=== PATIENT | female | born 1980 | race Caucasian/White ===

== ENCOUNTER 2017-01-08 12:26 | Emergency (ER) | payer OTHER ==
[~2017-01-08] VITALS: Ht 167.6 cm; Wt 52.2 kg
[~2017-01-08 12:26] MED LIST: PRE NATAL VITAMINS
[2017-01-08 13:00] VITALS: BP 118/86
[2017-01-08] MEDS ORDERED: CYCL-331 PO (13:00)
[2017-01-08] MEDS ORDERED: NAPR500T PO (13:00)
--- NOTE | 2017-01-08 13:00 | PHYS DOC ---
Past History Past Medical History: No Pertinent History, Other Past Surgical History: No Surgical History, Other Smoking: Cigarettes Alcohol Use: None Drug Use: None Adult General Chief Complaint Chief Complaint: BACK PAIN - NO INJURY HPI HPI Patient is a 36 year old female who presents with complaint of left-sided low back pain. Patient states that she has been having pain over the past few days. Patient states that the pain is in her lower back on the left side and radiates towards her left outer thigh. Patient states that the pain worsens with movement. Patient has had similar symptoms in the past associated with . The patient states that her symptoms are higher in the intensity than they were in the past. Patient rates pain currently as 8 out of 10. Patient denies any radiation of pain into her left foot. Patient denies loss of bowel or bladder control, saddle anesthesia, or foot drop. Patient has not taken any medications to help with symptoms. Describes pain as sharp and tight. Denies any fall or trauma. Review of Systems Review of Systems Constitutional: Denies fever or chills [] Eyes: Denies change in visual acuity, redness, or eye pain [] HENT: Denies nasal congestion or sore throat [] Respiratory: Denies cough or shortness of breath [] Cardiovascular: Denies chest pain or edema [] GI: Denies abdominal pain, nausea, vomiting, bloody stools or diarrhea [] : Denies dysuria or hematuria [] Musculoskeletal: Low back pain [] Integument: Denies rash or skin lesions [] Neurologic: Denies headache, focal weakness or sensory changes [] Allergies Allergies Allergies Coded Allergies Type Severity Reaction Last Updated Verified sulfamethoxazole Allergy Unknown 10/09/15 Yes trimethoprim Allergy Unknown 10/09/15 Yes Physical Exam Physical Exam Constitutional: Well developed, well nourished, appears in mild discomfort, non- toxic appearance. [] HENT: Normocephalic, atraumatic, bilateral external ears normal, oropharynx moist, no oral exudates, nose normal. [] Eyes: PERRLA, EOMI, conjunctiva normal, no discharge. [] Neck: Normal range of motion, no tenderness, supple, no stridor. [] Cardiovascular:Heart rate regular rhythm, no murmur [] Lungs & Thorax: Bilateral breath sounds clear to auscultation [] Abdomen: Bowel sounds normal, soft, no tenderness, no masses, no pulsatile masses. [] Skin: Warm, dry, no erythema, no rash. [] Back: Left lower lumbar paraspinous muscle tenderness to palpation, no tenderness to palpation over the distribution of sciatic nerve, tenderness with flexion at left hip, neurovascularly intact distal to site of pain. [] Extremities: No tenderness, no cyanosis, no clubbing, ROM intact, no edema. [] Neurologic: Alert and oriented X 3, normal motor function, normal sensory function, no focal deficits noted. [] Current Patient Data Vital Signs Vital Signs Date Time Temp Pulse Resp B/P (MAP) Pulse Ox O2 Delivery O2 Flow Rate FiO2 01/08/17 13:00 51 20 118/86 (97) 100 Room Air 01/08/17 12:26 98.4 Lab Results Not performed EKG EKG Not performed Radiology/Procedures Radiology/Procedures Not performed [] Course & Med Decision Making Course & Med Decision Making Pertinent Labs and Imaging studies reviewed. (See chart for details) Patient given Naprosyn in the emergency department. Patient's symptoms appear consistent with acute low back strain. Patient will continue on Flexeril and Naprosyn as outpatient treatment. Advised follow-up with primary care in one week for reevaluation. Advised return emergency department for any worsening symptoms. Patient voiced understanding and in agreement with treatment plan. Dragon Disclaimer Dragon Disclaimer This chart was dictated in whole or in part using Voice Recognition software in a busy, high-work load, and often noisy Emergency Department environment. It may contain unintended and wholly unrecognized errors or omissions. Departure Departure: Impression: Primary Impression: Low back strain Disposition: 01 HOME, SELF-CARE Condition: IMPROVED Referrals: MORGAN BAKNS MD (PCP) Patient Instructions: Back Pain, Adult Additional Instructions: Follow-up with your primary doctor in 1 week for reevaluation. Return to emergency department for any worsening symptoms. Scripts Naproxen (NAPROSYN) 500 Mg Tablet 1 TAB PO BID, #20 TAB 0 Refills Prov: SOSA VALLEJO MD 01/08/17 Cyclobenzaprine Hcl (CYCLOBENZAPRINE HCL) 10 Mg Tablet 1 TAB PO TID Y for MUSCLE PAIN, #30 TAB Prov: SOSA VALLEJO MD 01/08/17 Problem Qualifiers Primary Impression: Low back strain Encounter type: initial encounter Qualified Codes: S39.012A - Strain of muscle, fascia and tendon of lower back, initial encounter SOSA VALLEJO MD Jan 08, 2017 13:00
[2017-01-08] MEDS ORDERED: NAPROXEN 500 MG TABLET PO ONE (13:10)
== END 2017-01-08 13:10 | disposition home or self-care (01) ==
LOC: ER 12:26
DX: S39.012A Strain of muscle, fascia and tendon of lower back, initial encounter (principal); F17.210 Nicotine dependence, cigarettes, uncomplicated; Z88.1 Allergy status to other antibiotic agents; X58.XXXA Exposure to other specified factors, initial encounter; Y93.89 Activity, other specified; Y92.89 Other specified places as the place of occurrence of the external cause; Y99.8 Other external cause status
CPT/HCPCS: 99283

== ENCOUNTER 2017-10-05 13:09 | Emergency (ER) | payer OTHER ==
[~2017-10-05] VITALS: Ht 167.6 cm; Wt 54.4 kg
[~2017-10-05 13:09] MED LIST changes: +CYCL-331 PO; +NAPR-683 PO
--- NOTE | 2017-10-05 14:07 | PHYS DOC ---
Past History Past Medical History: No Pertinent History, Other Past Surgical History: Cholecystectomy, Other Smoking: Cigarettes Alcohol Use: None Drug Use: None Adult General Chief Complaint Chief Complaint: EARACHE/EAR PAIN HPI HPI Patient is a pleasant 37-year-old female with a history of smoking who presents with a 2 day history of ear pain that began spontaneously that come down to the upper portion of the jaw. Patient was she's had a URI last week abduction: Sick to work. She's had a nonproductive cough congestion runny nose and actually resolved. She woke up yesterday with facial discomfort on the left side of her face with radiation to the tragus of the ear without ear drainage hearing loss tinnitus or other symptoms. She denies any fevers, chills, trauma to the face, palms and chewing but she is having some increased pain with hot and cold foods. She has a known history of dental caries and dental problems for which she now has a insurance policy and will see the dentist pain is a 6 of 10 Review of Systems Review of Systems Constitutional: Denies fever or chills [] Eyes: Denies change in visual acuity, redness, or eye pain [] HENT: Positive for nasal congestion without sore throat positive for dental pain Respiratory: Positive for nonproductive cough negative for shortness of breath Cardiovascular: No additional information not addressed in HPI [] GI: Denies abdominal pain, nausea, vomiting, bloody stools or diarrhea [] : Denies dysuria or hematuria [] Musculoskeletal: Denies back pain or joint pain [] Integument: Denies rash or skin lesions [] Neurologic: Positive for facial pain without focal weakness sensory changes or change in vision Endocrine: Denies polyuria or polydipsia [] All other systems were reviewed and found to be within normal limits, except as documented in this note. Allergies Allergies Allergies Coded Allergies Type Severity Reaction Last Updated Verified sulfamethoxazole Allergy Unknown 10/09/15 Yes trimethoprim Allergy Unknown 10/09/15 Yes Physical Exam Physical Exam Of the vital signs on the chart within normal limits Constitutional: Well developed, well nourished, no acute distress, non-toxic appearance. [] HENT: Normocephalic, atraumatic, bilateral external ears normal, oropharynx moist, no oral exudates, nose normal TMs are clear bilaterally there is no tender is over the tragus is reproducible on physical exam there is no evidence of otitis externa very poor dentition significant erosions. Enamel to the dentin specifically along tooth 15 with some mild gingival inflammation and redness without soft tissue abscess noted no buccal mucosa induration. [] Eyes: PERRLA, EOMI, conjunctiva normal, no discharge. [] Neck: Normal range of motion, no tenderness, supple, no stridor. No anterior lymphadenopathy [] Cardiovascular:Heart rate regular rhythm, no murmur [] Lungs & Thorax: Bilateral breath sounds clear to auscultation [] Skin: Warm, dry, no erythema, no rash. On the face no vesicles noted [] Neurologic: Alert and oriented X 3, normal motor function, normal sensory function, no focal deficits noted. Speech is normal [] Psychologic: Affect normal, judgement normal, mood normal. [] EKG EKG [] Radiology/Procedures Radiology/Procedures [] Course & Med Decision Making Course & Med Decision Making Pertinent Labs and Imaging studies reviewed. (See chart for details) []She presents with unilateral left ear pain with significant dental caries and dental erosions to the enamel patient no she has chronic dental issues and likely has dental caries require root canals and treatment. I will place her on antibiotics and pain medications and close follow-up with her PCP for referral to dentist for an oral surgeon evaluation. Patient I discussed long-term treatment this is not here in the emergency department but with a dentist or oral surgeon. Impression: Dental caries, gingivitis, Disposition: discharge: I've spoken with the patient and/or caregivers. I've explained the patient's condition, diagnosis and treatment plan based on information available to me at this time. I've answered the patient's and/or caregivers questions and addressed any concerns. The patient and/or caregivers have a good understanding the patient's diagnosis, condition and treatment plan as can be expected at this point. Vital signs have been stabilized. The patient's condition is stable for discharge from the emergency department. The patient will pursue further outpatient evaluation with her primary care provider or other designated consulting physician as outlined in the discharge instructions. Patient and/or caregivers are agreeable to this plan of care and follow-up instructions have been explained in detail. The patient and/or caregivers have received these instructions in written format and expressed understanding of these discharge instructions. The patient and her caregivers are aware that if any significant change in condition or worsening of symptoms should prompt him to immediately return to this of the closest emergency department. If an emergent department is not readily available I would encourage him to call 911. Harsh Disclaimer Harsh Disclaimer This electronic medical record was generated, in whole or in part, using a voice recognition dictation system. Departure Departure: Impression: Primary Impression: Dental caries Additional Impression: Gingivitis Disposition: 01 HOME, SELF-CARE Condition: STABLE Referrals: MORGAN BANKS MD (PCP) Patient Instructions: Dental Caries, Gingivitis Additional Instructions: discharge: I've spoken with the patient and/or caregivers. I've explained the patient's condition, diagnosis and treatment plan based on information available to me at this time. I've answered the patient's and/or caregivers questions and addressed any concerns. The patient and/or caregivers have a good understanding the patient's diagnosis, condition and treatment plan as can be expected at this point. Vital signs have been stabilized. The patient's condition is stable for discharge from the emergency department. The patient will pursue further outpatient evaluation with her primary care provider or other designated consulting physician as outlined in the discharge instructions. Patient and/or caregivers are agreeable to this plan of care and follow-up instructions have been explained in detail. The patient and/or caregivers have received these instructions in written format and expressed understanding of these discharge instructions. The patient and her caregivers are aware that if any significant change in condition or worsening of symptoms should prompt him to immediately return to this of the closest emergency department. If an emergent department is not readily available I would encourage him to call 911. Scripts Naproxen Sodium (NAPROXEN SODIUM) 275 Mg Tablet 275 MG PO BID for 7 Days, #14 TAB Prov: RAISSA SCHERER MD 10/05/17 Hydrocodone Bit/Acetaminophen (HYDROCODONE-APAP 5-325 ) 1 Each Tablet 1 TAB PO PRN Q6HRS Y for PAIN for 3 Days, #10 TAB 0 Refills Prov: RAISSA SCHERER MD 10/05/17 Amoxicillin/Potassium Clav (AMOX TR-K CLV 875-125 MG TAB) 1 Each Tablet 1 TAB PO BID, #20 TAB Prov: RAISSA SCHERER MD 10/05/17 Problem Qualifiers RAISSA SCHERER MD Oct 05, 2017 14:07
[2017-10-05] MEDS ORDERED: NAPR275T59 PO (14:15)
[2017-10-05] MEDS ORDERED: HYDR-2758 PO (14:15)
[2017-10-05] MEDS ORDERED: AMOX1TAB11 PO (14:15)
[2017-10-05 14:50] VITALS: BP 132/92
== END 2017-10-05 14:50 | disposition home or self-care (01) ==
LOC: ER 13:09 → ICU 15:55 → UNDOADMIN 15:55
DX: K02.9 Dental caries, unspecified (principal); K05.10 Chronic gingivitis, plaque induced; R09.81 Nasal congestion; F17.210 Nicotine dependence, cigarettes, uncomplicated; Z88.1 Allergy status to other antibiotic agents; Z88.2 Allergy status to sulfonamides
CPT/HCPCS: 99283

== ENCOUNTER 2018-01-03 19:12 | Emergency (ER) | payer OTHER ==
[~2018-01-03] VITALS: Ht 167.6 cm; Wt 53.6 kg
[~2018-01-03 19:12] MED LIST changes: +AMOX1TAB11 PO; +HYDR-2758 PO; +NAPR275T59 PO
--- NOTE | 2018-01-03 19:21 | ED.ADGEN ---
Past History Past Medical History: No Pertinent History Past Surgical History: Cholecystectomy, Other Smoking: Cigarettes Alcohol Use: Sober Drug Use: Marijuana Adult General Chief Complaint Chief Complaint " It feels like I have sciatica again.. but this time on the right.. " HPI HPI Patient is a 37 year old female who presents with above hx and complaints of Rt. sciatica type complaints. No specific history of injury. Patient rates the pain proceeds down her back in to her right gluteal area and around her thigh. History of fever. No history immunosuppression. No history of cancer. Pain appears to track along the sciatic nerve on the right. DTRs +2 at patella. Patient does walk with a limp. Review of Systems Review of Systems Constitutional: Denies fever or chills [] Eyes: Denies change in visual acuity, redness, or eye pain [] HENT: Denies nasal congestion or sore throat [] Respiratory: Denies cough or shortness of breath [] Cardiovascular: No additional information not addressed in HPI [] GI: Denies abdominal pain, nausea, vomiting, bloody stools or diarrhea [] : Denies dysuria or hematuria [] Musculoskeletal: Complaints of right sciatic pain Integument: Denies rash or skin lesions [] Neurologic: Denies headache, focal weakness or sensory changes [] Endocrine: Denies polyuria or polydipsia [] All other systems were reviewed and found to be within normal limits, except as documented in this note. Family History Family History Noncontributory Current Medications Current Medications Current Medications Medications (Trade) Dose Ordered Sig/[facility] Start Time Stop Time Status Last Admin Dose Admin Ketorolac Tromethamine (Toradol) 60 mg 1X ONCE 01/03/18 19:45 01/03/18 19:46 DC 01/03/18 19:51 60 MG Orphenadrine Citrate (Norflex) 60 mg 1X ONCE 01/03/18 19:45 01/03/18 19:46 DC 01/03/18 19:51 60 MG Allergies Allergies Allergies Coded Allergies Type Severity Reaction Last Updated Verified sulfamethoxazole Allergy Unknown 10/09/15 Yes trimethoprim Allergy Unknown 10/09/15 Yes Physical Exam Physical Exam Constitutional: in acute distress, non-toxic appearance. [] HENT: Normocephalic, atraumatic, bilateral external ears normal, oropharynx moist, no oral exudates, nose normal. [] Eyes: PERRLA, EOMI, conjunctiva normal, no discharge. [] Neck: Normal range of motion, no tenderness, supple, no stridor. [] Cardiovascular:Heart rate regular rhythm, no murmur [] Lungs & Thorax: Bilateral breath sounds clear to auscultation [] Abdomen: Bowel sounds normal, soft, no tenderness, no masses, no pulsatile masses. [] Old surgery scar Skin: Warm, dry, no erythema, no rash. [] Back: Right sciatic nerve tenderness, no CVA tenderness. [] Extremities: No tenderness, no cyanosis, no clubbing, ROM intact, no edema. [] Except findings in right hip and leg. She does have a positive straight leg with pain on right. She denies any saddle loss. . Neurologic: Alert and oriented X 3, normal motor function, normal sensory function, no focal deficits noted. [] Psychologic: Affect normal, judgement normal, mood normal. [] Current Patient Data Vital Signs Vital Signs Date Time Temp Pulse Resp B/P (MAP) Pulse Ox O2 Delivery O2 Flow Rate FiO2 01/03/18 19:27 98.4 95 16 100 Room Air Lab Results Laboratory Tests Test 01/03/18 18:50 01/03/18 19:35 POC Urine HCG, Qualitative hcg negative (Negative) Urine Collection Type Unknown Urine Color Yellow Urine Clarity Clear Urine pH 8.0 Urine Specific [place] 1.015 Urine Protein Neg (NEG-TRACE) Urine Glucose (UA) Neg mg/dL (NEG) Urine Ketones (Stick) Neg mg/dL (NEG) Urine Blood Neg (NEG) Urine Nitrite Neg (NEG) Urine Bilirubin Neg (NEG) Urine Urobilinogen Dipstick 0.2 mg/dL (0.2 mg/dL) Urine Leukocyte Esterase Neg (NEG) Urine RBC 0 /HPF (0-2) Urine WBC Occ /HPF (0-4) Urine Squamous Epithelial Cells Mod /LPF Urine Transitional Epithelial Cells Few /LPF Urine Bacteria 0 /HPF (0-FEW) Urine Opiates Screen Neg (NEG) Urine Methadone Screen Neg (NEG) Urine Barbiturates Neg (NEG) Urine Phencyclidine Screen Neg (NEG) Urine Amphetamine/Methamphetamine Neg (NEG) Urine Benzodiazepines Screen Neg (NEG) Urine Cocaine Screen Neg (NEG) Urine Cannabinoids Screen Pos (NEG) Urine Ethyl Alcohol Neg (NEG) EKG EKG [] Radiology/Procedures Radiology/Procedures I interpretation x-ray showed degenerative joint changes but no obvious fracture dislocation[]. CT shows some some degenerative joint changes L4, L5 and S1. Course & Med Decision Making Course & Med Decision Making Pertinent Labs and Imaging studies reviewed. (See chart for details) Patient use ice packs as needed for the next 2 or 3 days. Moist heat may start after day 3. Take Tylenol and ibuprofen for pain. Patient follow-up primary care. Patient to return if any concerns. [] Final Impression Final Impression 1. Sciatica-right[] Dragon Disclaimer Dragon Disclaimer This electronic medical record was generated, in whole or in part, using a voice recognition dictation system. MATTY AUGUST MD Jan 03, 2018 19:21
[2018-01-03] MEDS ORDERED: ORPHENADRINE CITRATE 60 MG/2 ML VIAL. IM ONE (19:45)
[2018-01-03] MEDS ORDERED: KETOROLAC 60 MG/2 ML VIAL. IM ONE (19:45)
[2018-01-03 20:06] LABS: BARBITURATES NEG (NEG); BENZODIAZEPINES NEG (NEG); BILIRUBIN,URINE NEG (NEG); CANNABINOIDS POS (NEG); CLARITY,URINE CLEAR; COCAINE NEG (NEG); COLOR,URINE YELLOW; GLUCOSE,URINE NEG (NEG); METHADONE NEG (NEG); OPIATES NEG (NEG); PHENCYCLIDINE NEG (NEG)
[2018-01-03 20:07] LABS: AMPHETAMINE/METHAMPHETAMINE NEG (NEG); NITRITE,URINE NEG (NEG); UROBILINOGEN,URINE 0.2 mg/dL (0.2 mg/dL)
[2018-01-03 20:08] LABS: BACTERIA,URINE 0 /HPF (0-FEW); RBC,URINE 0 /HPF (0-2); SQUAMOUS EPITHELIAL CELL,UR MOD /LPF; WBC,URINE OCC /HPF (0-4)
[2018-01-03] MEDS ORDERED: CYCL-331 PO (21:06)
[2018-01-03] MEDS ORDERED: HYDR-79 PO (21:06)
--- NOTE | 2018-01-04 05:10 | RAD ---
AP pelvis x-ray HISTORY: Low back pain and right hip and leg pain. FINDINGS: No fracture, dislocation or arthritic change. Soft tissues are unremarkable. IMPRESSION: No acute osseous injury of the pelvis. Lumbar spine AP lateral x-rays 3 views. HISTORY: Low back pain radiating down the right hip and leg. FINDINGS: Mild levoconvex lumbar scoliosis. Lumbar vertebral body height and alignment intact. No fracture of the lumbar spine evident. Posterior disc space narrowing at L4-L5 and L5-S1. IMPRESSION: No acute osseous injury. Posterior disc space narrowing indicative of disc pathology at L4-5 and L5-S1. Electronically signed by: Nithin Luu MD (01/04/2018 5:06 AM) [facility]
== END 2018-01-03 21:15 | disposition home or self-care (01) ==
LOC: ER 19:12
DX: M54.31 Sciatica, right side (principal); F17.210 Nicotine dependence, cigarettes, uncomplicated; Z88.1 Allergy status to other antibiotic agents
CPT/HCPCS: 36415; 72100; 72170; 80307; 81001; 81025; 96372; 99285; J1885; J2360; G0479

== ENCOUNTER 2018-01-21 19:11 | Emergency (ER) | payer OTHER ==
[~2018-01-21] VITALS: Ht 167.6 cm; Wt 53.6 kg
[~2018-01-21 19:11] MED LIST changes: +HYDR-79 PO
--- NOTE | 2018-01-21 19:29 | ED.ADGEN ---
Past History Past Medical History: Anemia, High Cholesterol, Sciatica Past Surgical History: Colectomy Smoking: Cigarettes Alcohol Use: None Drug Use: Marijuana Adult General Chief Complaint Chief Complaint ".. I got chronic back pain.. but the last week or so... it gotten worse. .. I normally see Joselyn.. they did a xray.. but did not see anything the last time I seen him... then I got put on Prednisone... Wed... but pain has increased.... " HPI HPI Patient is a 37 year old female who presents with above hx and complaints of exacerbation of chronic mid back pain. Pt. had back pain for 8 yrs. Recent increase of pain. Did see Dr. Francisco on Wed. The patient has had previous dx. sciatica. Patient denies any recent injury that cause exacerbation. Patient denies any history of cancer. Patient denies any history of IV drug use. Patient denies any immunosuppression. She denies any problems defecation or urination. The pain located to lower lumbar area and seemed to radiate along sciatic nerves. Review of Systems Review of Systems Constitutional: Denies fever or chills [] Eyes: Denies change in visual acuity, redness, or eye pain [] HENT: Denies nasal congestion or sore throat [] Respiratory: Denies cough or shortness of breath [] Cardiovascular: No additional information not addressed in HPI [] GI: Denies abdominal pain, nausea, vomiting, bloody stools or diarrhea [] : Denies dysuria or hematuria [] Musculoskeletal: Complaints of lower back pain Integument: Denies rash or skin lesions [] Neurologic: Denies headache, focal weakness or sensory changes [] Endocrine: Denies polyuria or polydipsia [] All other systems were reviewed and found to be within normal limits, except as documented in this note. Family History Family History Noncontributory Current Medications Current Medications Current Medications Medications (Trade) Dose Ordered Sig/[facility] Start Time Stop Time Status Last Admin Dose Admin Ketorolac Tromethamine (Toradol Im) 60 mg 1X ONCE 01/21/18 20:00 01/21/18 20:02 DC 01/21/18 20:42 60 MG Morphine Sulfate (Morphine 10mg Syringe) 10 mg 1X ONCE 01/21/18 20:00 01/21/18 20:02 DC 01/21/18 20:43 10 MG Orphenadrine Citrate (Norflex) 60 mg 1X ONCE 01/21/18 20:00 01/21/18 20:02 DC 01/21/18 20:42 60 MG Allergies Allergies Allergies Coded Allergies Type Severity Reaction Last Updated Verified sulfamethoxazole Allergy Unknown 10/09/15 Yes trimethoprim Allergy Unknown 10/09/15 Yes Physical Exam Physical Exam Constitutional: Well developed, well nourished, no acute distress, non-toxic appearance. [] HENT: Normocephalic, atraumatic, bilateral external ears normal, oropharynx moist, no oral exudates, nose normal. [] Eyes: PERRLA, EOMI, conjunctiva normal, no discharge. [] Neck: Normal range of motion, no tenderness, supple, no stridor. [] Cardiovascular:Heart rate regular rhythm, no murmur [] Lungs & Thorax: Bilateral breath sounds clear to auscultation [] Abdomen: Bowel sounds normal, soft, no tenderness, no masses, no pulsatile masses. [] Surgical scar. Skin: Warm, dry, no erythema, no rash. [] Back: Lumbar sacral muscle tenderness. , no CVA tenderness. [] Extremities: No tenderness, no cyanosis, no clubbing, ROM intact, no edema. [] Neurologic: Alert and oriented X 3, normal motor function, normal sensory function, no focal deficits noted. []DTR +2 patella. Psychologic: Affect normal, judgement normal, mood normal. [] Current Patient Data Vital Signs Vital Signs Date Time Temp Pulse Resp B/P (MAP) Pulse Ox O2 Delivery O2 Flow Rate FiO2 01/21/18 21:18 98.2 96 20 132/72 (92) 99 Room Air EKG EKG [] Radiology/Procedures Radiology/Procedures CT of C-spine shows no acute processes. Does have DJD changes. See formal report Course & Med Decision Making Course & Med Decision Making Pertinent Labs and Imaging studies reviewed. (See chart for details). Patient take Tylenol or ibuprofen as needed for pain. Patient take Flexeril for muscle spasms. Patient to take Vicoprofen for marked discomfort. Patient must follow-up primary care and review x-rays and labs [] Final Impression Final Impression 1. Back Pain[]- Hx Chronic Sciatica x 8 yrs 2. Exacerbation of Chronic Back pain- 3. DJD Dragon Disclaimer Dragon Disclaimer This electronic medical record was generated, in whole or in part, using a voice recognition dictation system. MATTY AUGUST MD Jan 21, 2018 19:29
[2018-01-21] MEDS ORDERED: ORPHENADRINE CITRATE 60 MG/2 ML VIAL. IM ONE (20:00)
[2018-01-21] MEDS ORDERED: MORPHINE SULFATE 10 MG/ML SYRINGE. SQ ONE (20:00)
[2018-01-21] MEDS ORDERED: KETOROLAC 60 MG/2 ML VIAL. IM ONE (20:00)
--- NOTE | 2018-01-21 20:51 | RAD ---
CT lumbar spine without intravenous contrast History: Chronic pain. Worsening. Technique: Noncontrast CT of the lumbar spine was performed. Axial, sagittal, and coronal reconstructions were obtained. Exposure: One or more of the following individualized dose reduction techniques were utilized for this examination: 1. Automated exposure control 2. Adjustment of the mA and/or kV according to patient size 3. Use of iterative reconstruction technique Findings: Evaluation of spinal contents is limited by lack of intrathecal contrast. 5 lumbar type vertebral bodies are present. There is no evidence of acute fracture or acute malalignment. No paravertebral soft tissue swelling is identified. No spinal canal stenosis or significant neural foraminal narrowing is appreciated. There may be mild disc bulge L5-S1. Mild bilateral facet hypertrophy is seen at L5-S1. Calcified aortic atherosclerosis is seen. Impression: 1. No evidence of acute traumatic injury to the lumbar spine. 2. Mild degeneration at L5-S1. Electronically signed by: Dalton Serna MD (01/21/2018 8:48 PM) [facility]
[2018-01-21] MEDS ORDERED: CYCL-331 PO (21:00)
[2018-01-21] MEDS ORDERED: HYDR-79 PO (21:00)
[2018-01-21 21:18] VITALS: BP 132/72
== END 2018-01-21 21:19 | disposition home or self-care (01) ==
LOC: ER 19:11
DX: G89.29 Other chronic pain (principal); M47.896 Other spondylosis, lumbar region; E78.00 Pure hypercholesterolemia, unspecified; F17.210 Nicotine dependence, cigarettes, uncomplicated; Z88.1 Allergy status to other antibiotic agents; Z88.2 Allergy status to sulfonamides
CPT/HCPCS: 72131; 96372; 99284; J1885; J2270; J2360

== ENCOUNTER 2018-02-17 18:16 | Emergency (ER) | payer OTHER ==
[~2018-02-17] VITALS: Ht 170.2 cm; Wt 53.5 kg
[2018-02-17] MEDS ORDERED: MORPHINE SULFATE 10 MG/ML SYRINGE. IM ONE (19:45)
[2018-02-17] MEDS ORDERED: KETOROLAC 60 MG/2 ML VIAL. IM ONE (19:45)
[2018-02-17] MEDS ORDERED: ORPHENADRINE CITRATE 60 MG/2 ML VIAL. IM ONE (19:45)
--- NOTE | 2018-02-17 20:00 | PHYS DOC ---
Past History Past Medical History: Other Past Surgical History: Colectomy Smoking: Cigarettes Additional Smoking Information: PPD smoker Alcohol Use: None Drug Use: Marijuana Social History Narrative: Daily marijuana use Adult General Chief Complaint Chief Complaint: Neck Pain HPI HPI Patient is a 37 year old female who presents with complaint of neck and back pain. The patient has history of chronic lumbar radiculopathy. The patient states that she just started physical therapy yesterday. Patient states that she woke today with worsening pain along left side of her back and the left side of her neck. The patient denies any unusual symptoms including loss of bowel or bladder control, saddle anesthesia, or foot drop. The patient states she is having pain that radiates down her left leg which she has had in the past. The patient states currently she does not have any medications at home for pain. The patient states that she planned on going care doctor but was unable to get an appointment today so she came to the emergency department for assistance with pain control. Patient rates pain currently as 9 out of 10 on my evaluation. Review of Systems Review of Systems Constitutional: Denies fever or chills [] Eyes: Denies change in visual acuity, redness, or eye pain [] HENT: Denies nasal congestion or sore throat [] Respiratory: Denies cough or shortness of breath [] Cardiovascular: Denies chest pain or edema[] GI: Denies abdominal pain, nausea, vomiting, bloody stools or diarrhea [] : Denies dysuria or hematuria [] Musculoskeletal: Back pain, neck pain[] Integument: Denies rash or skin lesions [] Neurologic: Denies headache, focal weakness or sensory changes [] All other systems were reviewed and found to be within normal limits, except as documented in this note. Current Medications Current Medications Current Medications Medications (Trade) Dose Ordered Sig/Antonio Start Time Stop Time Status Last Admin Dose Admin Ketorolac Tromethamine (Toradol Im) 60 mg 1X ONCE 02/17/18 19:45 02/17/18 19:46 DC Morphine Sulfate (Morphine 10mg Syringe) 10 mg 1X ONCE 02/17/18 19:45 02/17/18 19:46 DC Orphenadrine Citrate (Norflex) 60 mg 1X ONCE 02/17/18 19:45 02/17/18 19:46 DC Allergies Allergies Allergies Coded Allergies Type Severity Reaction Last Updated Verified sulfamethoxazole Allergy Unknown 10/09/15 Yes trimethoprim Allergy Unknown 10/09/15 Yes Physical Exam Physical Exam Constitutional: Alert, afebrile, appears in mild discomfort. [] HENT: Normocephalic, atraumatic, bilateral external ears normal, oropharynx moist, no oral exudates, nose normal. [] Eyes: PERRLA, EOMI, conjunctiva normal, no discharge. [] Neck: Normal range of motion, left wrist last muscle tenderness to palpation, no midline tenderness, supple, no stridor. [] Cardiovascular:Heart rate regular rhythm, no murmur [] Lungs & Thorax: Bilateral breath sounds clear to auscultation [] Abdomen: Bowel sounds normal, soft, no tenderness, no masses, no pulsatile masses. [] Skin: Warm, dry, no erythema, no rash. [] Back: Left paraspinous muscle tenderness to palpation along lower lumbar and midthoracic spine, no midline tenderness, no CVA tenderness. [] Extremities: No tenderness, no cyanosis, no clubbing, ROM intact, no edema. [] Neurologic: Alert and oriented X 3, normal motor function, normal sensory function, no focal deficits noted. [] Current Patient Data Vital Signs Vital Signs Date Time Temp Pulse Resp B/P (MAP) Pulse Ox O2 Delivery O2 Flow Rate FiO2 02/17/18 18:27 97.9 118 16 98 Room Air Lab Results Not performed EKG EKG Not performed[] Radiology/Procedures Radiology/Procedures Not performed[] Course & Med Decision Making Course & Med Decision Making Pertinent Labs and Imaging studies reviewed. (See chart for details) The patient's symptoms appear to be an exacerbation of chronic underlying back pain. The patient is ambulatory at this time and displays no red flag symptoms for spinal cord compression. Patient was administered Toradol, Norflex, and morphine in the emergency department to assist with pain control. Due to chronic pain, I informed the patient she would need to have pain medication prescriptions written by her primary doctor for further care and recommended she follow up with her primary doctor in the next 1-2 days for reevaluation. Advised return to emergency department for any worsening symptoms. Patient was understanding and in agreement with treatment plan. Dragon Disclaimer Dragon Disclaimer This electronic medical record was generated, in whole or in part, using a voice recognition dictation system. Departure Departure: Impression: Primary Impression: Acute exacerbation of chronic low back pain Additional Impression: Neck pain Disposition: 01 HOME, SELF-CARE Condition: IMPROVED Referrals: HA QUINONEZ MD (PCP) Patient Instructions: Chronic Back Pain Additional Instructions: Follow-up the primary doctor in 1-2 days for reevaluation. Return to the emergency department for any worsening symptoms. Problem Qualifiers SOSA VALLEJO MD Feb 17, 2018 20:00
[2018-02-17 20:35] VITALS: BP 130/83
== END 2018-02-17 20:35 | disposition home or self-care (01) ==
LOC: ER 18:16
DX: G89.29 Other chronic pain (principal); M54.5 Low back pain; M54.2 Cervicalgia; F17.210 Nicotine dependence, cigarettes, uncomplicated; Z88.1 Allergy status to other antibiotic agents
CPT/HCPCS: 96372; 99284; J1885; J2270; J2360

== ENCOUNTER 2019-05-27 14:58 | Emergency (ER) | payer SELFPAY ==
[~2019-05-27] VITALS: Ht 170.2 cm; Wt 53.6 kg
[2019-05-27 14:58] VITALS: BP 141/87
[~2019-05-27 14:58] MED LIST changes: +HYDR-1179 PO; +HYDR-2155 PO; -HYDR-2758 PO; -HYDR-79 PO
--- NOTE | 2019-05-27 15:54 | PHYS DOC ---
Past History Past Medical History: Other Past Surgical History: Cholecystectomy, Colectomy Smoking: Cigarettes Alcohol Use: None Drug Use: Marijuana Adult General Chief Complaint Chief Complaint: MULTIPLE COMPLAINTS HPI HPI Patient is a 38-year-old female with 2 complaints. #1: Left middle toe pain. This started last night. She struck something while walking inside last night. No bleeding. Bruising is present. Increased pain with movement. Pain is mild to moderate in intensity. No radiation of the discomfort into the foot. #2: Left side facial pain. Patient has a history of poor dentition. She is hurting in her left upper teeth and into her face. No drainage. No fever. No difficulty breathing or swallowing. No nausea or vomiting. No relief with Aleve taken earlier today. Symptoms have been present since this morning. Getting worse over time. Pain is moderate to severe in intensity.[] Review of Systems Review of Systems Constitutional: Denies fever or chills [] Eyes: Denies change in visual acuity, redness, or eye pain [] HENT: Denies nasal congestion or sore throat, see history of present illness [] Respiratory: Denies cough or shortness of breath [] Cardiovascular: No chest pain or palpitations[] GI: Denies abdominal pain, nausea, vomiting, bloody stools or diarrhea [] : Denies dysuria or hematuria [] Musculoskeletal: Denies back pain, see history of present illness[] Integument: Denies rash or skin lesions [] Neurologic: Denies headache, focal weakness or sensory changes [] Endocrine: Denies polyuria or polydipsia [] All other systems were reviewed and found to be within normal limits, except as documented in this note. Current Medications Current Medications Current Medications Medications (Trade) Dose Ordered Sig/[facility] Start Time Stop Time Status Last Admin Dose Admin Amoxicillin (Amoxil) 500 mg 1X ONCE 05/27/19 16:00 05/27/19 16:01 UNV Allergies Allergies Allergies Coded Allergies Type Severity Reaction Last Updated Verified sulfamethoxazole Allergy Unknown 10/09/15 Yes trimethoprim Allergy Unknown 10/09/15 Yes Physical Exam Physical Exam Constitutional: Well developed, well nourished, no acute distress, non-toxic appearance. [] HENT: Normocephalic, atraumatic, bilateral external ears normal, oropharynx m oist, no oral exudates, nose normal. Poor dentition throughout. Tooth #14 has tenderness to percussion. There is no drainable abscess appreciated. There is some mild left sinus tenderness to percussion. No tongue swelling. Uvula is midline.[] Eyes: PERRLA, EOMI, conjunctiva normal, no discharge. [] Neck: Normal range of motion, no tenderness, supple, no stridor. [] Cardiovascular:Heart rate regular rhythm, no murmur [] Lungs & Thorax: Bilateral breath sounds clear to auscultation [] Abdomen: Not examined. [] Skin: Warm, dry, no erythema, no rash. [] Back: No tenderness, no CVA tenderness. [] Extremities: Left middle toe has bruising in the middle one third. No subungual hematoma. Patient is distally neurovascularly intact. No pain within the foot itself, only the toe. Flexion and extension is normal and equivalent to the right side. The other 3 extremities show: No tenderness, no cyanosis, no clubbing, ROM intact, no edema. [] Neurologic: Alert and oriented X 3, normal motor function, normal sensory function, no focal deficits noted. [] Psychologic: Affect normal, judgement normal, mood normal. [] EKG EKG [] Radiology/Procedures Radiology/Procedures Three-view radiographs of the left middle toe show no evidence of a fracture or dislocation[] Course & Med Decision Making Course & Med Decision Making Pertinent Labs and Imaging studies reviewed. (See chart for details) Emergency department course: Patient arrived, was placed in bed, and tolerated exam well. She was transported to and from radiology with any complications. She was given a dose of amoxicillin for dental infection. Findings and plan were discussed with the patient who voiced understanding. All questions were answered. She was discharged in improved condition. Medical decision making: There is no evidence of a fracture or dislocation of the toe. This appears to be a contusion. There is no evidence of neurologic or vascular compromise. Patient has a left dental abscess. She will need to follow up with a dentist for long-term management. Will treat her as an outpatient with pain medicine and antibiotics.[] Dragon Disclaimer Dragon Disclaimer This electronic medical record was generated, in whole or in part, using a voice recognition dictation system. Departure Departure: Impression: Primary Impression: Toe contusion Additional Impression: Dental infection Disposition: 01 HOME, SELF-CARE Condition: IMPROVED Referrals: HA QUINONEZ MD (PCP) Follow-up in 2 days Patient Instructions: Florian Taping of Toes, Contusion, Dental Abscess, Dental Caries Additional Instructions: Follow-up with your regular doctor and dentist in 2 days. If you do not have a regular dentist a list of local dental clinics will be provided. Take the medication as prescribed. Return to the ER if worsening pain or any other concerns. Scripts Meloxicam (MELOXICAM) 7.5 Mg Tablet 7.5 MG PO DAILY for PAIN, #20 TAB Prov: ARLET POWELL DO 05/27/19 Amoxicillin (AMOXICILLIN) 500 Mg Tablet 500 MG PO TID for dental infection for 10 Days, #30 TAB Prov: ARLET POWELL DO 05/27/19 Problem Qualifiers Primary Impression: Toe contusion Encounter type: initial encounter Toe: lesser toe Damage to nail status: without damage Laterality: left Qualified Codes: S90.122A - Contusion of left lesser toe(s) without damage to nail, initial encounter ARLET POWELL DO May 27, 2019 15:54
[2019-05-27] MEDS ORDERED: AMOXICILLIN 250 MG CAPSULE PO ONE (16:00)
[2019-05-27] MEDS ORDERED: MELO7.5T29 PO (16:25)
[2019-05-27] MEDS ORDERED: AMOX500T PO (16:25)
--- NOTE | 2019-05-27 17:03 | RAD ---
TOES LEFT History: Third toe pain and bruising after axial load injury Comparison: None. Findings: 3 views of the left foot with attention to the third digit are submitted. No acute fracture or dislocation is identified by radiographs. Impression: 1. No acute osseous abnormality is identified by radiographs. Electronically signed by: Marck العلي MD (05/27/2019 5:00 PM) [facility]
== END 2019-05-27 16:30 | disposition home or self-care (01) ==
LOC: ER 14:58
DX: S90.122A Contusion of left lesser toe(s) without damage to nail, initial encounter (principal); K04.7 Periapical abscess without sinus; F17.210 Nicotine dependence, cigarettes, uncomplicated; Z88.2 Allergy status to sulfonamides; Z88.1 Allergy status to other antibiotic agents; W22.8XXA Striking against or struck by other objects, initial encounter; Y93.01 Activity, walking, marching and hiking; Y92.89 Other specified places as the place of occurrence of the external cause; Y99.8 Other external cause status
CPT/HCPCS: 73660; 99284

== ENCOUNTER 2019-07-26 13:05 | Emergency (ER) | payer SELFPAY ==
[~2019-07-26] VITALS: Ht 170.2 cm; Wt 53.6 kg
[~2019-07-26 13:05] MED LIST changes: +AMOX500T PO; +MELO7.5T29 PO
[2019-07-26] MEDS ORDERED: IBUP400T99 PO (14:02)
[2019-07-26] MEDS ORDERED: AMOX500C PO (14:02)
[2019-07-26] MEDS ORDERED: HYDR-3165 PO (14:02)
[2019-07-26] MEDS ORDERED: CHLO15MO2 PO (14:04)
--- NOTE | 2019-07-26 14:04 | PHYS DOC ---
Past History Past Medical History: No Pertinent History Past Surgical History: Cholecystectomy, Colectomy Smoking: Cigarettes Alcohol Use: Occasionally Drug Use: Marijuana Adult General Chief Complaint Chief Complaint: DENTAL PROBLEM HPI HPI Patient is a 38-year-old female who presented to ER today for evaluation of dental pain that been going on for several months. Patient says she is scheduled to have her teeth removed , all OF her teeth SOMETIMES NEXT MONTH. She denies any fever. Patient denies any problem with open or close her mouth. Patient said her TEETH HURT WHEN SHE CHEWING HER FOOD. PATIENT HAS BEEN SEEN BY A DENTIST, WAS TOLD TO HAVE ALL OF HER TEETH PULLED BECAUSE SHE HAS SEVERE CASE OF PERIODENTAL DISEASE AND GINGIVITIS. Patient denied any fever. All other ROS is negative unless otherwise noted in HPI Review of Systems Review of Systems See above Allergies Allergies Allergies Coded Allergies Type Severity Reaction Last Updated Verified sulfamethoxazole Allergy Unknown 10/09/15 Yes trimethoprim Allergy Unknown 10/09/15 Yes Physical Exam Physical Exam See above Constitutional: Well developed, well nourished, no acute distress, non-toxic appearance. [] HENT: Normocephalic, atraumatic, bilateral external ears normal, oropharynx moist, no oral exudates, nose normal. WIDE SPREAD DENTAL DECAY, DIFFUSE GUMLINE INFLAMMATION, ALL TEETH EROSED, LOOSEN, TENDER TO PALPATION, NO PALPABLE DENTAL ABSCESS, NO TRISMUS, PATIENT CAN OPEN AND CLOSE HER MOUTH WITHOUT ANY PROBLEM, NO JAW SWELLING. Eyes: PERRLA, EOMI, conjunctiva normal, no discharge. [] Neck: Normal range of motion, no tenderness, supple, no stridor. [] Cardiovascular:Heart rate regular rhythm, no murmur [] Lungs & Thorax: Bilateral breath sounds clear to auscultation [] Skin: Warm, dry, no erythema, no rash. [] Back: No tenderness, no CVA tenderness. [] Neurologic: Alert and oriented X 3, normal motor function, normal sensory function, no focal deficits noted. [] Psychologic: Affect normal, judgement normal, mood normal. [] Current Patient Data Vital Signs Vital Signs Date Time Temp Pulse Resp B/P (MAP) Pulse Ox O2 Delivery O2 Flow Rate FiO2 07/26/19 13:14 98.2 84 18 136/70 (92) 97 Room Air EKG EKG [] Radiology/Procedures Radiology/Procedures [] Course & Med Decision Making Course & Med Decision Making Pertinent Labs and Imaging studies reviewed. (See chart for details) Dragon Disclaimer Dragon Disclaimer This electronic medical record was generated, in whole or in part, using a voice recognition dictation system. Departure Departure: Impression: Primary Impression: Dental decay Additional Impressions: Gingival disease Periodontal disease Disposition: HOME, SELF-CARE Condition: STABLE Referrals: HA QUINONEZ MD (PCP) please follow up with your dentist, oral surgeon for definitive treatment next week. Patient Instructions: Dental Caries, Gingivitis Additional Instructions: Thank you for visiting our Emergency Department. We appreciate you trusting us with your care. If any additional problems come up don't hesitate to return to visit us. Please follow up with your primary care provider so they can plan additional care if needed and know about the problem that you had. If symptoms worsen come back to the Emergency Department. Any concerning symptoms that start such as chest pain, shortness of air, weakness or numbness on one side of the body, running high fevers or any other concerning symptoms return to the ER. Scripts Chlorhexidine Gluconate (PERIDEX) 15 Ml Mouthwash 15 ML PO TID for gingivitis for 8 Days, #473 ML 0 Refills Prov: MARIA A GUERRA DO 07/26/19 Hydrocodone Bit/Acetaminophen (NORCO 5-325 TABLET) 1 Each Tablet 1 TAB PO PRN Q6HRS PRN for PAIN, #15 TAB 0 Refills Prov: MARIA A GUERRA DO 07/26/19 Ibuprofen (Ibu) 400 Mg Tablet 400 MG PO Q8HRS PRN for PAIN, #30 TAB Prov: MARIA A GUERRA DO 07/26/19 Amoxicillin (AMOXICILLIN) 500 Mg Capsule 1 CAP PO TID for dental infection for 14 Days, #42 CAP Prov: MARIA A GUERRA DO 07/26/19 Problem Qualifiers MARIA A GUERRA DO Jul 26, 2019 14:04
[2019-07-26 14:10] VITALS: BP 133/79
== END 2019-07-26 14:13 | disposition home or self-care (01) ==
LOC: ER 13:05
DX: K02.9 Dental caries, unspecified (principal); K06.9 Disorder of gingiva and edentulous alveolar ridge, unspecified; K05.6 Periodontal disease, unspecified; F17.210 Nicotine dependence, cigarettes, uncomplicated; F12.90 Cannabis use, unspecified, uncomplicated; Z90.49 Acquired absence of other specified parts of digestive tract; Z90.89 Acquired absence of other organs; Z88.2 Allergy status to sulfonamides
CPT/HCPCS: 99283

== ENCOUNTER 2020-04-26 15:48 | Emergency (ER) | payer SELFPAY ==
[~2020-04-26] VITALS: Ht 170.2 cm; Wt 59.7 kg
[~2020-04-26 15:48] MED LIST changes: +AMOX500C PO; +CHLO15MO2 PO; +HYDR-3165 PO; +IBUP400T99 PO
[2020-04-26 15:55] VITALS: BP 174/93
[2020-04-26] MEDS ORDERED: NAPR500T8 PO (16:20)
[2020-04-26] MEDS ORDERED: CHLO15MO2 PO (16:20)
[2020-04-26] MEDS ORDERED: AMOX500T PO (16:20)
[2020-04-26] MEDS ORDERED: HYDR-3165 PO (16:20)
--- NOTE | 2020-04-26 16:20 | PHYS DOC ---
Past History Past Medical History: No Pertinent History Past Surgical History: Cholecystectomy, Colectomy, Other Additional Past Surgical Histo: Dental Smoking: Cigarettes Alcohol Use: Occasionally Drug Use: Marijuana Adult General Chief Complaint Chief Complaint: FACE PAIN HPI HPI Patient is a 39-year-old female patient who presents to the ED today complaining of 8 out of 10 throbbing right lower gum dental pain that began 2 days ago. Patient denies any fever or trismus. She states she has an appointment with a dentist in 2 weeks. She states the recommendation moves all her teeth but financially is not possible. Review of Systems Review of Systems Constitutional: Denies fever or chills [] Eyes: Denies change in visual acuity, redness, or eye pain [] HENT: Reports right lower gum dental pain Musculoskeletal: Denies back pain or joint pain [] Integument: Denies rash or skin lesions [] Neurologic: Denies headache, focal weakness or sensory changes [] All other systems were reviewed and found to be within normal limits, except as documented in this note. Allergies Allergies Allergies Coded Allergies Type Severity Reaction Last Updated Verified sulfamethoxazole Allergy Unknown 10/09/15 Yes trimethoprim Allergy Unknown 10/09/15 Yes Physical Exam Physical Exam Constitutional: Well developed, well nourished, no acute distress, non-toxic appearance. [] HENT: Patient is missing multiple teeth, severe dental decay noted throughout her teeth. Right lower gumline with small amount of swelling consistent with a dental abscess on the molars. There is no fluctuance Skin: Warm, dry, no erythema, no rash. [] Back: No tenderness, no CVA tenderness. [] Extremities: No tenderness, no cyanosis, no clubbing, ROM intact, no edema. [] Neurologic: Alert and oriented X 3, normal motor function, normal sensory function, no focal deficits noted. [] Psychologic: Affect normal, judgement normal, mood normal. [] Current Patient Data Vital Signs Vital Signs Date Time Temp Pulse Resp B/P (MAP) Pulse Ox O2 Delivery O2 Flow Rate FiO2 04/26/ 15:55 97.9 86 16 174/93 (120) 98 Room Air EKG EKG [] Radiology/Procedures Radiology/Procedures [] Heart Score Risk Factors: Risk Factors: DM, Current or recent (<one month) smoker, HTN, HLP, family history of CAD, obesity. Risk Scores: Risk Factors: DM, Current or recent (<one month) smoker, HTN, HLP, family history of CAD, obesity. Course & Med Decision Making Course & Med Decision Making Pertinent Labs and Imaging studies reviewed. (See chart for details) Patient has dental decay and dental abscess. Has an appointment with a dentist 2 weeks ago. Discharged on amoxicillin. Follow-up with dentist as scheduled. Dragon Disclaimer Dragon Disclaimer This electronic medical record was generated, in whole or in part, using a voice recognition dictation system. Departure Departure: Impression: Primary Impression: Dentalgia Additional Impressions: Dental abscess Infected dental caries Disposition: DC HOME SELF CARE/HOMELESS Condition: STABLE Referrals: HA QUINONEZ MD (PCP) follow up with your dentist as scheduled Patient Instructions: Dental Abscess Additional Instructions: You were seen for dental abscess and dental infection. Use the prescribed medications as ordered. Follow-up with your dentist as scheduled in 2 weeks Scripts Hydrocodone Bit/Acetaminophen (NORCO 5-325 TABLET) 1 Each Tablet 1 TAB PO Q6-8HRS PRN for PAIN, #12 TAB Prov: KRISTI MACIEL APRN 10/20 Chlorhexidine Gluconate (PERIDEX) 15 Ml Mouthwash 15-30 ML PO TID for 8 Days, #473 ML 0 Refills Prov: KRISTI MACIEL APRN 10/30/20 Naproxen (NAPROXEN) 500 Mg Tablet.dr 1 TAB PO BID, #20 TAB 1 Refill Prov: KRISTI MACIEL APRN 10/30/20 Amoxicillin (AMOXICILLIN) 500 Mg Tablet 1 TAB PO BID, #20 TAB Prov: KRISTI MACIEL APRN 10/30/20 Problem Qualifiers KRISTI MACIEL APRN Apr 26, 2020 16:20
== END 2020-04-26 16:27 | disposition home or self-care (01) ==
LOC: ER 15:48
DX: K04.7 Periapical abscess without sinus (principal); K02.9 Dental caries, unspecified; R60.0 Localized edema; F17.210 Nicotine dependence, cigarettes, uncomplicated; F12.90 Cannabis use, unspecified, uncomplicated; Z90.49 Acquired absence of other specified parts of digestive tract; Z90.89 Acquired absence of other organs; Z98.890 Other specified postprocedural states; Z88.2 Allergy status to sulfonamides; Z88.8 Allergy status to other drugs, medicaments and biological substances
CPT/HCPCS: 99283

== ENCOUNTER 2020-09-10 08:40 | Emergency (ER) | payer SELFPAY ==
[~2020-09-10] VITALS: Ht 170.2 cm; Wt 59.7 kg
[~2020-09-10 08:40] MED LIST changes: +NAPR500T8 PO
[2020-09-10 08:45] VITALS: BP 168/84
[2020-09-10] MEDS ORDERED: KETOROLAC 60 MG/2 ML VIAL. IM ONE (09:00)
--- NOTE | 2020-09-10 09:02 | PHYS DOC ---
Past History Past Medical History: No Pertinent History Past Surgical History: Cholecystectomy, Colectomy, Other Additional Past Surgical Histo: Dental Smoking: Cigarettes Alcohol Use: Occasionally Drug Use: Marijuana General Adult EDM: Chief Complaint: Neck Pain HPI: HPI: Patient is a 39-year-old female coming in for 6 days of neck pain. Says the pain radiates to both sides of her neck and started having tingling in her left arm. States she is occasionally felt lightheaded. Has been taking Tylenol ibuprofen for pain. States she woke up with the pain denies any injury. Has a history of degenerative disc disease and sciatica. Denies any fevers, ear pain, sore throat, difficulty swallowing, headaches, or numbness. Review of Systems: Review of Systems: All other systems within normal limits except for as noted in the HPI Allergies: Allergies: Allergies Coded Allergies Type Severity Reaction Last Updated Verified sulfamethoxazole Allergy Unknown 10/09/15 Yes trimethoprim Allergy Unknown 10/09/15 Yes Physical Exam: PE: Constitutional: Well developed, well nourished, no acute distress, non-toxic appearance. [] HENT: Normocephalic, atraumatic, bilateral external ears normal, nose normal. [] Eyes: PERRLA, conjunctiva normal, no discharge. [] Neck: No rigidity, supple, no stridor. No cervical lymphadenopathy. No step- off or deformity of C-spine. Positive Spurling test [] Cardiovascular: Regular rate and rhythm, brisk cap refill [] Lungs & Thorax: Non labored symmetric respirations, no tachypnea or respiratory distress [] Abdomen: Soft, nondistended. Skin: Warm, dry, no erythema, no rash. [] Back: Unremarkable Extremities: No deformities, range of motion grossly intact, no lower extremity edema [] Neurologic: Alert and oriented X 3, no focal deficits noted. [] Psychologic: Affect normal, judgement normal, mood normal. [] EKG: EKG: [] Radiology/Procedures: Radiology/Procedures: C-spine 3 views. HISTORY: Low cervical neck pain AP, lateral and odontoid views were taken of the cervical spine. C-spine is in normal alignment. There is mild spurring at C4-5 and C5-6. There is mild facet arthritis at C7-T1. There is mild disc space narrowing at C4-5 and C5-6. There is no acute C-spine fracture. Odontoid is not optimally visualized on the open mouth view. There is evidence of dental issues in the molars on the lateral C- spine views. IMPRESSION: 1. Extensive dental issues. 2. Mild degenerative spondylosis C4-5 and C5-6 in the cervical spine. 3. No acute fracture. [] Heart Score: C/O Chest Pain: No Risk Factors: Risk Factors: DM, Current or recent (<one month) smoker, HTN, HLP, family history of CAD, obesity. Risk Scores: Score 0 - 3: 2.5% MACE over next 6 weeks - Discharge Home Score 4 - 6: 20.3% MACE over next 6 weeks - Admit for Clinical Observation Score 7 - 10: 72.7% MACE over next 6 weeks - Early Invasive Strategies Course & Med Decision Making: Course & Med Decision Making Pertinent Labs and Imaging studies reviewed. (See chart for details) [] Dragon Disclaimer: Dragon Disclaimer: This electronic medical record was generated, in whole or in part, using a voice recognition dictation system. Departure Departure: Impression: Primary Impression: Spondylosis of cervical spine Disposition: 01 DC HOME SELF CARE/HOMELESS Condition: STABLE Referrals: PCP,MANSOOR (PCP) Patient Instructions: Cervical Strain and Sprain with Rehab-[facility] Additional Instructions: [facility] for primary care follow-up Address: [address] [place] [id number] Scripts Cyclobenzaprine Hcl (CYCLOBENZAPRINE HCL) 10 Mg Tablet 1 TAB PO TID PRN for MUSCLE SPASMS for 5 Days, #15 TAB Prov: MORGAN MARTIN MD 09/10/20 Meloxicam (MELOXICAM) 15 Mg Tablet 1 TAB PO DAILY PRN for PAIN for 20 Days, #20 TAB 0 Refills Prov: MORGAN MARTIN MD 09/10/20 MORGAN MARTIN MD Sep 10, 2020 09:01
--- NOTE | 2020-09-10 09:28 | RAD ---
C-spine 3 views. HISTORY: Low cervical neck pain AP, lateral and odontoid views were taken of the cervical spine. C-spine is in normal alignment. Ther e is mild spurring at C4-5 and C5-6. There is mild facet arthritis at C7-T1. There is mild disc space narrowing at C4-5 and C5-6. There is no acute C-spine fracture. Odontoid is not optimally visualized on the open mouth view. There is evidence of dental issues in the molars on the lateral C-spine view s. IMPRESSION: 1. Extensive dental issues. 2. Mild degenerative spondylosis C4-5 and C5-6 in the cervical spine. 3. No acute fracture. Electronically signed by: Deven Shultz MD (09/10/2020 9:26 AM) [id number]
[2020-09-10] MEDS ORDERED: CYCL-331 PO (09:37)
[2020-09-10] MEDS ORDERED: MELO15TA23 PO (09:37)
== END 2020-09-10 09:42 | disposition home or self-care (01) ==
LOC: ER 08:40
DX: M47.812 Spondylosis without myelopathy or radiculopathy, cervical region (principal); F17.210 Nicotine dependence, cigarettes, uncomplicated; Z88.2 Allergy status to sulfonamides; Z88.1 Allergy status to other antibiotic agents
CPT/HCPCS: 72040; 96372; 99283; J1885

== ENCOUNTER 2020-12-12 13:17 | Emergency (ER) | payer SELFPAY ==
[~2020-12-12] VITALS: Ht 170.2 cm; Wt 59.7 kg
[~2020-12-12 13:17] MED LIST changes: +MELO15TA23 PO
[2020-12-12 13:28] VITALS: BP 165/89
[2020-12-12] MEDS ORDERED: CYCL-331 PO (14:15)
[2020-12-12] MEDS ORDERED: KETOROLAC 15 MG/ML VIAL. IM ONE (14:15)
[2020-12-12] MEDS ORDERED: CYCLOBENZAPRINE 10 MG TABLET. PO ONE (14:15)
--- NOTE | 2020-12-12 14:16 | PHYS DOC ---
Past History Past Medical History: No Pertinent History Additional Past Medical Histor: sciatica, degenerative disc disease (SHANA VO APRN) Past Surgical History: Cholecystectomy, Colectomy, Other Additional Past Surgical Histo: Dental (SHANA VO APRN) Smoking: Cigarettes Alcohol Use: Occasionally Drug Use: Marijuana (SHANA VO APRN) General Adult EDM: Chief Complaint: BACK PAIN - NO INJURY HPI: HPI: Patient is a 40-year-old female who presents with chronic back pain. Patient denies injury. Patient states "I woke up this morning and my back was hurting all over". "I have back pain every day but today was worse". "It is radiating down my butt into my left leg". Patient ambulated on her own into the emergency room denies taking anything for pain at home. Denies loss of bowel or urinary retention. (SHANA VO APRN) Review of Systems: Review of Systems: Constitutional: Denies fever or chills Eyes: Denies change in visual acuity HENT: Denies nasal congestion or sore throat Respiratory: Denies cough or shortness of breath Cardiovascular: Denies chest pain or edema GI: Denies abdominal pain, nausea, vomiting, bloody stools or diarrhea : Denies dysuria Musculoskeletal: Reports back pain with radiation down the left leg Integument: Denies rash Neurologic: Denies headache, focal weakness or sensory changes Endocrine: Denies polyuria or polydipsia Lymphatic: Denies swollen glands Psychiatric: Denies depression or anxiety (SHANA VO APRN) Current Medications: Current Meds: Current Medications Medications (Trade) Dose Ordered Sig/Antonio Start Time Stop Time Status Last Admin Dose Admin Cyclobenzaprine HCl (Flexeril) 10 mg 1X ONCE 12/12/20 14:15 12/12/20 14:16 UNV Ketorolac Tromethamine (Toradol 15mg Vial) 15 mg 1X ONCE 12/12/20 14:15 12/12/20 14:16 UNV (SHANA VO APRN) Allergies: Allergies: Allergies Coded Allergies Type Severity Reaction Last Updated Verified sulfamethoxazole Allergy Unknown 09/10/20 Yes trimethoprim Allergy Unknown 09/10/20 Yes (SHANA VO APRN) Physical Exam: PE: Constitutional: Well developed, well nourished, no acute distress, non-toxic appearance. [] HENT: Normocephalic, atraumatic, bilateral external ears normal, oropharynx j[address], no oral exudates, nose normal. [] Eyes: PERRLA, EOMI, conjunctiva normal, no discharge. [] Neck: Normal range of motion, no tenderness, supple, no stridor. [] Cardiovascular:Heart rate regular rhythm, no murmur [] Lungs & Thorax: Bilateral breath sounds clear to auscultation [] Abdomen: Bowel sounds normal, soft, no tenderness, no masses, no pulsatile masses. [] Skin: Warm, dry, no erythema, no rash. [] Back: Lower back tenderness, no CVA tenderness. [] Extremities: No tenderness, ROM intact, no edema. [] Neurologic: Alert and oriented X 3, normal motor function, normal sensory function, no focal deficits noted. [] Psychologic: Affect normal, judgement normal, mood normal. [] (SHANA VO APRN) Current Patient Data: Vital Signs: Vital Signs Date Time Temp Pulse Resp B/P (MAP) Pulse Ox O2 Delivery O2 Flow Rate FiO2 12/12/20 13:28 98.2 87 16 165/89 (114) 100 Room Air (SHANA VO APRN) EKG: EKG: [] (SHANA VO APRN) Radiology/Procedures: Radiology/Procedures: [] (SHANA VO APRN) Heart Score: C/O Chest Pain: No Risk Factors: Risk Factors: DM, Current or recent (<one month) smoker, HTN, HLP, family history of CAD, obesity. Risk Scores: Score 0 - 3: 2.5% MACE over next 6 weeks - Discharge Home Score 4 - 6: 20.3% MACE over next 6 weeks - Admit for Clinical Observation Score 7 - 10: 72.7% MACE over next 6 weeks - Early Invasive Strategies (SHANA VO APRN) Course & Med Decision Making: Course & Med Decision Making Pertinent Labs and Imaging studies reviewed. (See chart for details) [] 40-year-old female presents with chronic back pain. Denies known injury. Patient reports the pain is all over and radiates down her left leg. IM, 15 mg Toradol given, 10 mg Flexeril in the emergency room. Patient given rice instructions. Patient denies having a PCP due to lack of insurance. Patient given resources so that she can utilize local clinic. Patient sent home with a prescription for Flexeril. Advised patient to take ibuprofen and Tylenol at home. Discussed return precautions with patient, states that she understands d ischarge instructions and is appreciative. (SHANA VO APRN) Harsh Disclaimer: Harsh Disclaimer: This electronic medical record was generated, in whole or in part, using a voice recognition dictation system. (SHANA VO APRN) Attending Co-Sign The patient was seen and interviewed as well as examined at the bedside. The chart was reviewed. The case was discussed. Agree with the plan of care. (MARC BUCKNER DO) Departure Departure: Impression: Primary Impression: Chronic back pain Qualified Codes: M54.6 - Pain in thoracic spine; G89.29 - Other chronic pain Additional Impression: Sciatica Qualified Codes: M54.32 - Sciatica, left side Disposition: 01 HOME / SELF CARE / HOMELESS Condition: STABLE Referrals: PCP,NO (PCP) Patient Instructions: Chronic Back Pain, Sciatica, [id number] Additional Instructions: You are seen in the emergency room for chronic back pain and sciatica. Toradol and Flexeril were given in the emergency room for pain. Take ibuprofen and Tylenol at home for discomfort. Use ice to the affected area. I am sending you home with prescription for Flexeril resources for establishing a PCP in clinic information. If you have worsening symptoms or concerns please return to the emergency room. EMERGENCY DEPARTMENT GENERAL DISCHARGE INSTRUCTIONS Thank you for coming to [facility] (ED) today and trusting us with you care. We trust that you had a positivie experience in our Emergency Department. If you wish to speak to the department management, you may call the director at [phone]. YOUR FOLLOW UP INSTRUCTIONS ARE FOLLOWS: 1. Do you have a private Doctor? If you do not have a private doctor, please ask for a resource list of physicians or clinics that may be able to assist you with follow up care. 2. The Emergency Physician has interpreted your x-rays. The X-Ray specialist will also review them. If there is a change in the findings, you will be notified in 48 hours when at all possible. 3. A lab test or culture has been done, your results will be reviewed and you will be notified if you need a change in treatment. ADDITIONAL INSTRUCTIONS AND INFORMATION: 1. Your care today has been supervised by a physician who is specially trained in emergency care. Many problems require more than one evaluation for a complete diagnosis and treatment. We recommend that you schedule your follow up appointment as recommended to ensure complete treatment of you illness or injury. If you are unable to obtain follow up care and continue to have a problem, or if your condition worsens, we recommend that you return to the ED. 2. We are not able to safely determine your condition over the phone nor are we able to give sound medical advice over the phone. For these safety reasons, if you call for medical advice we will ask you to come to the ED for further evaluation. 3. If you have any questions regarding these discharge instructions please call the ED at [phone]. SAFETY INFORMATION: In the interest of safety, wellness, and injury prevention; we encourage you to wear your sealbelt, if you smoke; quite smoking, and we encourage family to use a protective helmet for bicycling and other sporting events that present an increased risk for head injury. IF YOUR SYMPTOMS WORSEN OR NEW SYMPTOMS DEVELOP, OR YOU HAVE CONCERNS ABOUT YOUR CONDITION; OR IF YOUR CONDITION WORSENS WHILE YOU ARE WAITING FOR YOUR FOLLOW UP APPOINTMENT; EITHER CONTACT YOUR PRIMARY CARE DOCTOR, THE PHYSICIAN WHOSE NAME AND NUMBER YOU WERE GIVEN, OR RETURN TO THE ED IMMEDIATELY. Scripts Cyclobenzaprine Hcl (CYCLOBENZAPRINE HCL) 10 Mg Tablet 10 MG PO TID for sciatica for 5 Days, #15 TAB Prov: SHANA VO APRN 12/12/20 SHANA VO APRN Dec 12, 2020 14:16 MARC BUCKNER DO Dec 13, 2020 06:19
== END 2020-12-12 14:39 | disposition home or self-care (01) ==
LOC: ER 13:17
DX: G89.29 Other chronic pain (principal); M54.6 Pain in thoracic spine; M54.32 Sciatica, left side; F17.210 Nicotine dependence, cigarettes, uncomplicated; F12.10 Cannabis abuse, uncomplicated; Z88.2 Allergy status to sulfonamides; Z90.49 Acquired absence of other specified parts of digestive tract
CPT/HCPCS: 96372; 99283; J1885

== ENCOUNTER 2021-01-20 10:58 | Emergency (ER) | payer SELFPAY ==
[~2021-01-20] VITALS: Ht 170.2 cm; Wt 59.7 kg
[2021-01-20] MEDS ORDERED: IBUPROFEN 600 MG TABLET. PO ONE (13:30)
[2021-01-20 13:42] LABS: BILIRUBIN,URINE NEG (NEG); CLARITY,URINE CLEAR; COLOR,URINE YELLOW; GLUCOSE,URINE NEG (NEG); NITRITE,URINE NEG (NEG); UROBILINOGEN,URINE 0.2 mg/dL (0.2 mg/dL)
[2021-01-20 13:43] LABS: BACTERIA,URINE FEW /HPF (0-FEW); RBC,URINE 0 /HPF (0-2); WBC,URINE RARE /HPF (0-4)
--- NOTE | 2021-01-20 14:00 | PHYS DOC ---
Past History Past Medical History: No Pertinent History Additional Past Medical Histor: sciatica, degenerative disc disease Past Surgical History: Cholecystectomy, Colectomy, Other Additional Past Surgical Histo: Dental Smoking: Cigarettes Alcohol Use: None Drug Use: Marijuana General Adult EDM: Chief Complaint: FEVER HPI: HPI: Patient is a 40-year-old female being seen in the ER today for generalized body aches, fever, nonproductive cough for the last few days.. Patient denies shortness of breath, chest pain, loss of taste or smell, nausea, vomiting, diarrhea, abdominal pain, dysuria, sore throat. She denies any sick exposures. Review of Systems: Review of Systems: 14 body systems of the review of systems have been reviewed. See HPI for pertinent positive and negative responses, otherwise all other systems are negative, nonpertinent or noncontributory Current Medications: Current Meds: Current Medications Medications (Trade) Dose Ordered Sig/Antonio Start Time Stop Time Status Last Admin Dose Admin Ibuprofen (Motrin) 600 mg 1X ONCE 01/20/21 13:30 01/20/21 13:31 DC 01/20/21 13:44 600 MG Allergies: Allergies: Allergies Coded Allergies Type Severity Reaction Last Updated Verified sulfamethoxazole Allergy Unknown 09/10/20 Yes trimethoprim Allergy Unknown 09/10/20 Yes Physical Exam: PE: Constitutional: Well developed, well nourished, no acute distress, non-toxic appearance. [] HENT: Normocephalic, atraumatic, bilateral external ears normal, oropharynx moist, no oral exudates, nose normal. [] Eyes: PERRLA, EOMI, conjunctiva normal, no discharge. [] Neck: Normal range of motion, no tenderness, supple, no stridor. [] Cardiovascular:Heart rate regular rhythm, no murmur, normal peripheral perfusion [] Lungs & Thorax: Bilateral breath sounds clear to auscultation, nonlabored, no accessory muscle use [] Abdomen: Bowel sounds normal, soft, no tenderness, no masses, no pulsatile masses. [] Skin: Warm, dry, no erythema, no rash. [] Back: No tenderness, no CVA tenderness. [] Extremities: No tenderness, no cyanosis, no clubbing, ROM intact, no edema. [] Neurologic: Alert and oriented X 3, normal motor function, normal sensory function, no focal deficits noted. [] Psychologic: Affect normal, judgement normal, mood normal. [] Current Patient Data: Labs: Laboratory Tests Test 01/20/21 13:05 01/20/21 13:19 Urine Collection Type Unknown Urine Color Yellow Urine Clarity Clear Urine pH 6.5 Urine Specific [place] 1.020 Urine Protein Neg (NEG-TRACE) Urine Glucose (UA) Neg mg/dL (NEG) Urine Ketones (Stick) Neg mg/dL (NEG) Urine Blood Neg (NEG) Urine Nitrite Neg (NEG) Urine Bilirubin Neg (NEG) Urine Urobilinogen Dipstick 0.2 mg/dL (0.2 mg/dL) Urine Leukocyte Esterase Neg (NEG) Urine RBC 0 /HPF (0-2) Urine WBC Rare /HPF (0-4) Urine Bacteria Few /HPF (0-FEW) POC Urine HCG, Qualitative hcg negative (Negative) Vital Signs: Vital Signs Date Time Temp Pulse Resp B/P (MAP) Pulse Ox O2 Delivery O2 Flow Rate FiO2 01/20/21 11:08 97.9 103 16 123/89 100 Room Air EKG: EKG: [] Radiology/Procedures: Radiology/Procedures: [] Heart Score: C/O Chest Pain: No Risk Factors: Risk Factors: DM, Current or recent (<one month) smoker, HTN, HLP, family history of CAD, obesity. Risk Scores: Score 0 - 3: 2.5% MACE over next 6 weeks - Discharge Home Score 4 - 6: 20.3% MACE over next 6 weeks - Admit for Clinical Observation Score 7 - 10: 72.7% MACE over next 6 weeks - Early Invasive Strategies Course & Med Decision Making: Course & Med Decision Making Pertinent Labs and Imaging studies reviewed. (See chart for details) Patient is a 40-year-old female being seen in the ER today for body aches, fever, nonproductive cough. Patient's lung sounds are clear and she is nonlabor ed. Patient was Covid tested in the ER. It is likely the patient does have COVID-19 viral illness. Patient was also tested with UA. UA was unremarkable. I discussed with patient all findings and diagnostic testing as well as the need to follow-up with PCP for further evaluation and treatment or return to the ER if any new or worsening symptoms. Strict return precautions were also discussed at length. Patient voiced understanding and agreement with the plan. Patient is hemodynamically stable at the time of disposition. Dragon Disclaimer: Dragon Disclaimer: This electronic medical record was generated, in whole or in part, using a voice recognition dictation system. Departure Departure: Impression: Primary Impression: Fever Qualified Codes: R50.9 - Fever, unspecified Disposition: HOME / SELF CARE / HOMELESS Condition: GOOD Referrals: PCP,NO (PCP) Patient Instructions: Fever Additional Instructions: You were seen in the ER today for body aches, nonproductive cough, fever. Your physical exam was reassuring. Your urine was negative for any infection. You were tested for COVID-19 in the ER today. You will be notified of your results in 1 to 2 days. Please self isolate until you receive these results. You should return to the ER if you develop worsening cough, shortness of breath, chest pain, or any other new or concerning symptoms. Alternate Tylenol and ibuprofen as needed for your body aches and pain. If your test does come back positive we will need to quarantine yourself for 10 days until symptom free. You should make sure to drink plenty of fluids and get plenty of rest. EMERGENCY DEPARTMENT GENERAL DISCHARGE INSTRUCTIONS Thank you for coming to [facility] ([facility]) today and trusting us with you care. We trust that you had a positivie experience in our Emergency Department. If you wish to speak to the department management, you may call the director at [phone]. YOUR FOLLOW UP INSTRUCTIONS ARE FOLLOWS: 1. Do you have a private Doctor? If you do not have a private doctor, please ask for a resource list of physicians or clinics that may be able to assist you with follow up care. 2. The Emergency Physician has interpreted your x-rays. The X-Ray specialist will also review them. If there is a change in the findings, you will be notified in 48 hours when at all possible. 3. A lab test or culture has been done, your results will be reviewed and you will be notified if you need a change in treatment. ADDITIONAL INSTRUCTIONS AND INFORMATION: 1. Your care today has been supervised by a physician who is specially trained in emergency care. Many problems require more than one evaluation for a complete diagnosis and treatment. We recommend that you schedule your follow up appointment as recommended to ensure complete treatment of you illness or injury. If you are unable to obtain follow up care and continue to have a problem, or if your condition worsens, we recommend that you return to the ED. 2. We are not able to safely determine your condition over the phone nor are we able to give sound medical advice over the phone. For these safety reasons, if you call for medical advice we will ask you to come to the ED for further evaluation. 3. If you have any questions regarding these discharge instructions please call the ED at [phone]. SAFETY INFORMATION: In the interest of safety, wellness, and injury prevention; we encourage you to wear your sealbelt, if you smoke; quite smoking, and we encourage family to use a protective helmet for bicycling and other sporting events that present an increased risk for head injury. IF YOUR SYMPTOMS WORSEN OR NEW SYMPTOMS DEVELOP, OR YOU HAVE CONCERNS ABOUT YOUR CONDITION; OR IF YOUR CONDITION WORSENS WHILE YOU ARE WAITING FOR YOUR FOLLOW UP APPOINTMENT; EITHER CONTACT YOUR PRIMARY CARE DOCTOR, THE PHYSICIAN WHOSE NAME AND NUMBER YOU WERE GIVEN, OR RETURN TO THE ED IMMEDIATELY. LAURIE TOBAR SECTION PLOTTER OPERATOR Jan 20, 2021 14:00
[2021-01-20 14:56] VITALS: BP 126/93
--- NOTE | 2021-01-21 09:51 | NUR ---
IP: Informed pt of positive covid test and the need to quarantine x 10 days. Pt verbalized understanding.
== END 2021-01-20 14:57 | disposition home or self-care (01) ==
LOC: ER 10:58
DX: U07.1 COVID-19 (principal); F17.210 Nicotine dependence, cigarettes, uncomplicated; Z88.2 Allergy status to sulfonamides; Z88.1 Allergy status to other antibiotic agents
CPT/HCPCS: 81001; 81025; 99283; C9803; U0003

== ENCOUNTER 2021-10-31 12:38 | Emergency (ER) | payer OTHER ==
[~2021-10-31] VITALS: Ht 170.2 cm; Wt 58.0 kg
[~2021-10-31 12:38] MED LIST changes: -CYCL-331 PO; +CYCL10TA19 PO
[2021-10-31] MEDS ORDERED: DEXAMETHASONE 4 MG TABLET PO ONE (13:00)
[2021-10-31] MEDS ORDERED: HYDROcodone/APAP 5/325MG 1 TAB TABLET PO ONE (13:00)
[2021-10-31] MEDS ORDERED: IBUPROFEN 600 MG TABLET. PO ONE (13:00)
[2021-10-31] MEDS ORDERED: PRED50TA PO (13:08)
[2021-10-31] MEDS ORDERED: HYDR-2155 PO (13:08)
[2021-10-31] MEDS ORDERED: AMOX1TAB61 PO (13:08)
--- NOTE | 2021-10-31 13:09 | PHYS DOC ---
Past History Past Medical History: No Pertinent History Additional Past Medical Histor: sciatica, degenerative disc disease Past Surgical History: Cholecystectomy, Colectomy, Other Additional Past Surgical Histo: Dental Smoking: Cigarettes Alcohol Use: None Drug Use: Marijuana Adult General Chief Complaint Chief Complaint: FACE PROBLEM HPI HPI Patient is a 41-year-old female present emergency department for evaluation of right submandibular and some lingual pain and swelling that she has noted for at least the past several days. She says she feels fullness in her right ear and decreased hearing. She denies fevers chills nausea vomiting difficulty breathing or swallowing. She does have poor dentition but she does not feel any dental pain. She is in no acute distress with normal vital signs. Review of Systems Review of Systems Constitutional: Denies fever or chills [] HENT: Denies nasal congestion or sore throat [] Respiratory: Denies cough or shortness of breath [] Cardiovascular: No additional information not addressed in HPI [] GI: Denies abdominal pain, nausea, vomiting, bloody stools or diarrhea [] Integument: Denies rash or skin lesions [] Neurologic: Denies headache, focal weakness or sensory changes [] All other systems were reviewed and found to be within normal limits, except as documented in this note. Allergies Allergies Allergies Coded Allergies Type Severity Reaction Last Updated Verified sulfamethoxazole Allergy Unknown 10/31/21 Yes trimethoprim Allergy Unknown 10/31/21 Yes Physical Exam Physical Exam Constitutional: Well developed, well nourished, no acute distress, non-toxic mae earance. [] HENT: Normocephalic, atraumatic, bilateral external ears normal, right tympanic membrane is bulging but no erythema or purulence noted. Airway patent with no swelling noted. Neck: Submandibular and sublingual pain and slight swelling noted but no erythema or warmth. She does have pain to palpation. Cardiovascular:Heart rate regular rhythm, no murmur [] Lungs & Thorax: Bilateral breath sounds clear to auscultation [] Skin: Warm, dry, no erythema, no rash. [] Current Patient Data Vital Signs Vital Signs Date Time Temp Pulse Resp B/P (MAP) Pulse Ox O2 Delivery O2 Flow Rate FiO2 10/31/21 12:50 98.1 82 16 96/47 (63) 100 EKG EKG [] Radiology/Procedures Radiology/Procedures [] Heart Score C/O Chest Pain: No Risk Factors: Risk Factors: DM, Current or recent (<one month) smoker, HTN, HLP, family history of CAD, obesity. Risk Scores: Risk Factors: DM, Current or recent (<one month) smoker, HTN, HLP, family history of CAD, obesity. Course & Med Decision Making Course & Med Decision Making Patient with possible lymphadenitis versus possible early cellulitis for soft tissue infection but there is no purulence or induration noted. I will have patient put on steroids anti-inflammatories and antibiotics and told her to drink plenty of fluids. I told her to follow with primary care provider within 2 to 3 days for recheck and come back to emergency department sooner with worsening pain fevers difficulty breathing or swallowing or other general concerns. Patient aware and agreeable with plan and verbalized understanding of the above instructions. Dragon Disclaimer Dragon Disclaimer This electronic medical record was generated, in whole or in part, using a voice recognition dictation system. Departure Departure: Impression: Primary Impression: Submandibular lymphadenitis Disposition: HOME / SELF CARE / HOMELESS Condition: STABLE Referrals: PCP,NO (PCP) Patient Instructions: Soft Tissue Injury of the Neck Scripts Prednisone (PREDNISONE) 50 Mg Tablet 1 TAB PO DAILY, #3 TAB Prov: VU MONCADA DO 10/31/21 Hydrocodone Bit/Acetaminophen (HYDROCODONE-APAP 5-325 ) 1 Each Tablet 1 TAB PO PRN Q6HRS PRN for PAIN, #10 TAB 0 Refills Prov: VU MONCADA DO 10/31/21 Amoxicillin/Potassium Clav (AUGMENTIN 875-125 TABLET) 1 Each Tablet 1 TAB PO BID for 7 Days, #14 TAB 0 Refills Prov: VU MONCADA DO 10/31/21 VU MONCADA DO October 31, 2021 13:09
[2021-10-31 13:24] VITALS: BP 105/56
== END 2021-10-31 13:26 | disposition home or self-care (01) ==
LOC: ER 12:38
DX: I88.8 Other nonspecific lymphadenitis (principal); F17.210 Nicotine dependence, cigarettes, uncomplicated; Z88.2 Allergy status to sulfonamides; Z88.1 Allergy status to other antibiotic agents
CPT/HCPCS: 99284; J8540